=== PATIENT | female | born 1960 | race Caucasian/White ===

== ENCOUNTER 2017-02-23 08:18 | Emergency (ER) | payer OTHER ==
[~2017-02-23] VITALS: Ht 170.2 cm; Wt 69.4 kg
--- NOTE | 2017-02-23 08:54 | ED SKIN/ALLERGY COMPLAINT ---
History of Present Illness General Chief Complaint: Animal/Insect Bite Stated Complaint: SPIDER BITE Source: patient Exam Limitations: no limitations Vital Signs & Intake/Output Vital Signs & Intake/Output Vital Signs Date Time Temp Pulse Resp B/P B/P Pulse O2 O2 Flow FiO2 Mean Ox Delivery Rate 02/23 0950 97.0 90 17 170/106 97 02/23 0830 97.7 127 16 170/105 97 Room Air Allergies Coded Allergies: Sulfa (Sulfonamide Antibiotics) (UNKNOWN 02/23/17) Reconcile Medications Cephalexin (Keflex) 500 MG CAPSULE 1 CAP PO BID CELLULITIS Losartan Potassium 100 MG TABLET 1 TAB PO DAILY HEART (Reported) Paroxetine HCl 40 MG TABLET 1 TAB PO DAILY MENTAL HEALTH (Reported) Triage Note: PT HERE FOR INFECTION RIGHT RING FINGER. Triage Nurses Notes Reviewed? yes Onset: Gradual Duration: constant Timing: recent history Severity: moderate Severity Numbers: 5 Location: extremities Possible Factors: no cause identified No Modifying Factors: none HPI: Patient is a 57-year-old female with past medical history of depression and hypertension who presents emergency and that 2 days ago she noticed a gradual onset of redness swelling and burning sensation to the distal last active patient's right third digit finger. Patient does state that today she tried using a alcohol swabbed scissor incision and noted only blood after puncture wound was performed by patient. Denies any fever chills denies any trauma denies any previous discharge. (JOVANNA CARBAJAL) Past History Travel History Traveled to [place] past 21 day No Medical History Any Pertinent Medical History? see below for history Cardiovascular: hypertension Psychiatric: anxiety Surgical History Surgical History: non-contributory Psychosocial History What is your primary language Croatian Tobacco Use: Never used ETOH Use: occasional use Illicit Drug Use: denies illicit drug use Family History Hx Contributory? No (JOVANNA CARBAJAL) Review of Systems Review of Systems Constitutional: Reports: no symptoms. EENTM: Reports: no symptoms. Respiratory: Reports: no symptoms. Cardiovascular: Reports: no symptoms. GI: Reports: no symptoms. Genitourinary: Reports: no symptoms. Musculoskeletal: Reports: see HPI, joint pain, joint swelling. Skin: Reports: see HPI, erythema. Neurological/Psychological: Reports: no symptoms. Hematologic/Endocrine: Reports: no symptoms. Immunologic/Allergic: Reports: no symptoms. All Other Systems: Reviewed and Negative (JOVANNA CARBAJAL) Physical Exam Physical Exam General Appearance: no apparent distress, alert, comfortable Skin: intact Skin Problem Location: upper extremities Comments: Well-developed well-nourished no apparent distress. HEENT: Atraumatic, extraocular motion intact Neck: Supple, no lymphadenopathy Back: Nontender Respiratory: No respiratory distress Neuro: Alert and oriented x3 Psych: Mood affect normal, normal memory normal judgment. Diagram Hands, Dorsum: 1) Noted 1 cm tenderness swelling erythema and warmth. Full active range of motion noted with flexion and extension no active discharge no purulence no nail involvement (JOVANNA CARBAJAL) Progress Differential Diagnosis: abscess/cellulitis, allergic reaction, contact dermatitis, cellulitis, septic arthritis, paronychia Plan of Care: Orders Procedure Date/time Status EXTREMETIES CULTURE 02/23 949 Active Microbiology 02/23 950 EXTREMITIE: Culture & Sensitivity - RECD 02/23 950 EXTREMITIE: Gram Stain - RECD On initial examination there was minimal suspicion of paronychia or abscess however an incision and drainage was performed. Using sterile technique of Betadine using 1% lidocaine approximate 3 mL of lidocaine was successful and local anesthesia using a 11 blade a 3 mm incision was placed with only blood was discharged. Culture was obtained and sent and currently pending. Bandage was applied patient tolerated well. No concerns of septic arthritis patient will be treated for concerns of cellulitis of right third digit. (JOVANNA CARBAJAL) Departure Departure Disposition: HOME OR SELF CARE Condition: Stable Clinical Impression Primary Impression: Cellulitis of finger, right Referrals: ROBERTA CUNNINGHAM,JAMILAH Ardon (PCP/Family) Additional Instructions: As discussed change the bandages once a day Begin the prescription of Keflex as directed for the full course, PRESCRIPTIONS waiting at [facility] [facility]. If symptoms worsen return to emergency room. Follow-up your primary care doctor in 3 days for recheck of symptoms. Departure Forms: Customer Survey General Discharge Information Prescriptions: Current Visit Scripts Cephalexin (Keflex) 1 CAP PO BID #20 CAP (JOVANNA CARBAJAL) PA/BRAIDING OPERATOR Co-Sign Statement Statement: ED Attending supervision documentation- [] I saw and evaluated the patient. I have also reviewed all the pertinent lab results and diagnostic results. I agree with the findings and the plan of care as documented in the PA's/BRAIDING OPERATOR's documentation. [X] I have reviewed the ED Record and agree with the PA's/BRAIDING OPERATOR's documentation. [] Additions or exceptions (if any) to the PAs/BRAIDING OPERATOR's note and plan are summarized below: [] (FABIOLA CUNNINGHAM,NATALI)
[2017-02-23] MEDS ORDERED: PAROXETINE HCL40 M1 PO (09:08)
[2017-02-23] MEDS ORDERED: LOSARTAN POTAS100 M1 PO (09:09)
[2017-02-23] MEDS ORDERED: KEFLEX500 M1 PO (09:40)
[2017-02-23 09:50] VITALS: BP 170/106
== END 2017-02-23 09:51 ==
LOC: ERH 08:18
DX: L03.011 Cellulitis of right finger (principal)
CPT/HCPCS: 87070; 87147

== ENCOUNTER 2018-01-05 07:25 | Emergency (ER) | payer OTHER ==
[~2018-01-05] VITALS: Ht 170.2 cm; Wt 65.8 kg
[~2018-01-05 07:25] MED LIST: KEFLEX500 M1 PO; LOSARTAN POTAS100 M1 PO; PAROXETINE HCL40 M1 PO
[2018-01-05 07:30] VITALS: BP 163/103
--- NOTE | 2018-01-05 07:43 | ED EAR COMPLAINT ---
History of Present Illness General Chief Complaint: Ear Complaints Stated Complaint: RT EAR PAIN AND DRAINAGE Source: patient Exam Limitations: no limitations Vital Signs & Intake/Output Vital Signs & Intake/Output Vital Signs Date Time Temp Pulse Resp B/P B/P Pulse O2 O2 Flow FiO2 Mean Ox Delivery Rate 01/05 0730 99.2 111 16 163/103 95 Room Air Allergies Coded Allergies: Sulfa (Sulfonamide Antibiotics) (UNKNOWN 02/23/17) Reconcile Medications Cephalexin (Keflex) 500 MG CAPSULE 1 CAP PO BID CELLULITIS Ciprofloxacin HCl/Dexameth (Ciprodex Otic Suspension) 0.3 %-0.1 % DROPS.SUSP 4 GTT OT BID OTITIS EXTERNA Losartan Potassium 100 MG TABLET 1 TAB PO DAILY HEART (Reported) Paroxetine HCl 40 MG TABLET 1 TAB PO DAILY MENTAL HEALTH (Reported) Tylenol With Codeine (Tylenol With Codeine #3 Tablet) 300 MG-30 MG TABLET 1 TAB PO BIDP PRN BREAKTHROUGH PAIN Triage Note: PT C/O LEFT EAR PAIN STATES SHE HAD SURGERY ON HER RIGHT EAR AND IT CLEARED UP HER EAR. PT STATES SHE WOULD LIKE TO GET A CT SCAN. Triage Nurses Notes Reviewed? 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 No issues with the left ear for the past 2 years. She did have multiple reconstruction surgeries on her right ear about 2 years ago by her ENT specialist in [facility]. Approximately 2 months ago she had slight pain behind the left ear but was investigated by the ENT doctor and they could not find any issues. She has been waiting for an outpatient CT that has still yet severe approved. No fevers no chills. She does wear hearing aids in both ears. Past History Travel History Traveled to [place] past 21 day No Medical History Any Pertinent Medical History? see below for history Cardiovascular: hypertension Psychiatric: anxiety Surgical History Surgical History: non-contributory Psychosocial History What is your primary language Korean Tobacco Use: Never used ETOH Use: occasional use Illicit Drug Use: denies illicit drug use Family History Hx Contributory? No Review of Systems Review of Systems Constitutional: Denies: chills, fever. EENTM: Reports: ear discharge. Respiratory: Denies: cough, short of breath. Cardiovascular: Denies: chest pain, palpitations. GI: Denies: abdominal pain. Genitourinary: Reports: no symptoms. Musculoskeletal: Reports: no symptoms. Skin: Reports: no symptoms. Neurological/Psychological: Reports: no symptoms. Hematologic/Endocrine: Denies: bruising, bleeding. Immunologic/Allergic: Reports: no symptoms. All Other Systems: Reviewed and Negative Physical Exam Physical Exam General Appearance: well developed/nourished, mild distress Head: atraumatic Eyes: Bilateral: normal appearance, PERRL. Ears: Left: discharge (WHITE/ALMONTE, UNABLE TO VIS TM). Right: other (NO EVIDENCE OF INFECTION). Nose: normal inspection Mouth/Throat: normal mouth inspection Neck: normal inspection, supple Cardiovascular/Respiratory: normal breath sounds, regular rate/rhythm Back: normal inspection Neurologic/Psych: awake, alert, oriented x 3, normal mood/affect Skin: intact, normal color, warm/dry Progress Differential Diagnoses I considered the following diagnoses in my evaluation of the patient: [OTITIS EXTERNA, OTITIS MEDIA] Plan of Care: ANTIBIOTIC DROPS, ENT FOLLOW UP Initial ED EKG: none Departure Departure Time of Disposition: 0750 Disposition: HOME OR SELF CARE Condition: Stable Clinical Impression Primary Impression: Otitis externa Referrals: Augustine CUNNINGHAM,Mikey Ardon (PCP/Family) Additional Instructions: USE THE CIPRODEX ANTIBIOTICS AND TYLENOL #3 NEEDED FOR PAIN FOLLOW UP WITH YOUR ENT SPECIALIST RETURN NEEDED Departure Forms: Customer Survey General Discharge Information Prescriptions: Current Visit Scripts Tylenol With Codeine (Tylenol With Codeine #3 Tablet) 1 TAB PO BIDP PRN BREAKTHROUGH PAIN #10 TAB Ciprofloxacin HCl/Dexameth (Ciprodex Otic Suspension) 4 GTT OT BID #1 BOT
[2018-01-05] MEDS ORDERED: TYLENOL WITH C1 EACH PO (07:52)
[2018-01-05] MEDS ORDERED: CIPRODEX OTIC7.5 ML OT (07:52)
== END 2018-01-05 07:57 ==
LOC: ERH 07:25
DX: H60.91 Unspecified otitis externa, right ear (principal)